=== PATIENT | male | born 1985 | race Caucasian/White ===

== ENCOUNTER 2020-03-26 21:11 | Observation (INO) | payer OTHER, SELFPAY ==
[2020-03-26] VITALS (7 sets, daily range): BP systolic 137–145; BP diastolic 88–95; PULSE 87–94; RESP 16–19; TEMP 36.9; O2SAT 96–99; BMI 21.2
--- NOTE | 2020-03-26 21:39 | CT_ITS ---
PROCEDURE: CT ABDOMEN PELVIS W CON CLINICAL INDICATION: abdominal pain For quadrant and right lower quadrant abdominal pain COMPARISON: No exams were available for comparison TECHNIQUE: IV Contrast: 75ML OPTIRAY 350 Oral Contrast None Axial images obtained with sagittal and coronal reformats. All CT scans at the facility use one or more dose reduction, viz: automated exposure control, ma/kV adjustment per patient size (including targeted exams where dose is matched to indication, i.e. head), or iterative reconstruction technique. FINDINGS: LOWER THORAX: Minimal atelectatic or fibrotic changes noted in the left lung base ABDOMEN & PELVIS: Hepatic steatosis. No focal liver lesion apparent. There is increased density along the posterior aspect of the gallbladder and could be due to a small stone or tumefactive sludge. Gallbladder ultrasound may provide further evaluation. The spleen, adrenal glands, pancreas, and kidneys have an unremarkable appearance. No intestinal obstruction or free air. Unremarkable appearing appendix. No pelvic mass or abnormal fluid collection. There is fatty atrophy of the rectus abdominal musculature right greater than left. No acute bony findings. IMPRESSION: 1. No acute finding. 2. Hepatic steatosis. 3. Fatty atrophy of the rectus abdominal musculature right greater than left Dictated by: Arian Munoz MD 03/27/2020 08:54 Arian Munoz MD in [place] 03/27/2020 08:54
[2020-03-26 21:49] LABS: Microscopic, Urine URINE MICROSCOPIC (MICROSCOPIC)
[2020-03-26 21:52] LABS: Basophils # 0.1 K/mm3 (0-0.2); Basophils % 1.2 % (0.1-2.0); Eosinophils # 0.2 K/mm3 (0.0-0.4); Eosinophils % 5.7 % (0.1-12.0); Hematocrit 45.9 % (42.0-52.0); Hemoglobin 15.6 g/dL (14.1-18.0); Lymphocytes # 1.3 K/mm3 (0.7-4.5); Lymphocytes % 32.8 % (10-50); Mean Corpuscular HGB Conc 34.1 g/dL (31.8-35.4); Mean Corpuscular Hemoglobin 32.3 pg (27.0-31.2); Mean Corpuscular Volume 94.9 fl (80-94); Mean Platelet Volume 8.7 fl (7.4-10.4); Monocytes # 0.4 K/mm3 (0.1-1.0); Monocytes % 9.3 % (1.7-9.3); Neutrophils % 51.1 % (37.0-80.0); Platelet Count 180 K/mm3 (142-424); Red Blood Count 4.83 M/mm3 (4.60-6.20); White Blood Count 3.9 K/mm3 (4.8-10.8)
[2020-03-26 21:54] LABS: Appearance,Urine CLEAR (Clear); Bilirubin,Urine Negative (Negative); Blood, Urine Negative (Negative); Color,Urine YELLOW (Yellow); Glucose,Urine (UA) Negative (Negative); Ketones,Urine Negative (Negative); Leukocyte Esterase,Urine Negative (Negative); Nitrate,Urine Negative (Negative); Protein,Urine Negative (Negative); Specific Gravity, Urine >= 1.030 (1.005-1.030); Urobilinogen,Urine 0.2 EU/dl (0.2)
--- NOTE | 2020-03-26 22:05 | HMH.EDGENADL ---
ED Disposition Clinical Impression: Pancreatitis Qualifiers: Chronicity: acute Pancreatitis type: alcohol induced Acute pancreatitis complication: no infection or necrosis Qualified Code(s): K85.20 - Alcohol induced acute pancreatitis without necrosis or infection Disposition: Admitted As Inpatient Condition on Discharge: Fair - Critical Care Critical Care Time: No Attestation: On 03/26/20, the high probability of a clinically significant, sudden or life threatening deterioration of the following system(s) required my full and direct attention, intervention and personal management. The time I documented below is in addition to time spent performing reported procedures but includes the following listed in this critical care notation. Medical Decision Making - Mitchell Inquiry Pt receiving controlled substance: Yes (Patient received IV morphine for pain control) Mitchell was queried for this patient: No Risks and benefits of using a controlled substance: were discussed with pt by me Vital Signs: 03/26/20 21:27 03/26/20 21:30 03/26/20 22:00 Temperature 98.5 F Temperature Source Oral Pulse Rate Pulse Rate [Right] 87 93 H 94 H Respiratory Rate 19 17 17 Blood Pressure Blood Pressure [Right Arm] 145/95 H 141/94 H 137/90 Blood Pressure Mean [Right Arm] 111 109 105 Blood Pressure Source [Right Arm] Automatic Cuff Automatic Cuff Automatic Cuff Blood Pressure Position [Right Arm] Supine Supine Supine 02 Sat by Pulse Oximetry 99 97 99 Oxygen Delivery Method Room Air Room Air Room Air 03/26/20 22:30 03/26/20 23:00 03/26/20 23:30 Temperature Temperature Source Pulse Rate Pulse Rate [Right] 89 88 92 H Respiratory Rate 17 17 17 Blood Pressure Blood Pressure [Right Arm] 140/90 137/91 H 145/90 H Blood Pressure Mean [Right Arm] 106 106 108 Blood Pressure Source [Right Arm] Automatic Cuff Automatic Cuff Automatic Cuff Blood Pressure Position [Right Arm] Supine Supine Supine 02 Sat by Pulse Oximetry 99 96 98 Oxygen Delivery Method Room Air Room Air Room Air 03/26/20 23:47 03/27/20 00:00 Temperature 98.5 F Temperature Source Pulse Rate 88 Pulse Rate [Right] 89 Respiratory Rate 16 17 Blood Pressure 142/88 H Blood Pressure [Right Arm] 134/84 Blood Pressure Mean [Right Arm] 100 Blood Pressure Source [Right Arm] Automatic Cuff Blood Pressure Position [Right Arm] Supine 02 Sat by Pulse Oximetry 97 Oxygen Delivery Method Room Air Room Air - Lab Data Lab Results 03/26/20 21:25: WBC 3.9 L, RBC 4.83, Hgb 15.6, Hct 45.9, MCV 94.9 H, MCH 32.3 H, MCHC 34.1, RDW 14.0, Plt Count 180, MPV 8.7, Neut % (Auto) 51.1, Lymph % (Auto) 32.8, [place] % (Auto) 9.3, Eos % (Auto) 5.7, Baso % (Auto) 1.2, Neut # (Auto) 2.0, Lymph # (Auto) 1.3, [place] # (Auto) 0.4, Eos # (Auto) 0.2, Baso # (Auto) 0.1 03/26/20 21:25: Amylase 161 H, Lipase 1979 H 03/26/20 21:25: Urine Color Yellow, Urine Appearance Clear, Urine pH 6.0, Ur Specific [place] >= 1.030, Urine Protein Negative, Urine Glucose (UA) Negative, Urine Ketones Negative, Urine Blood Negative, Urine Nitrate Negative, Urine Bilirubin Negative, Urine Urobilinogen 0.2, Ur Leukocyte Esterase Negative, Urine RBC 3-5, Urine WBC 5-10, Ur Squamous Epith Cells Occasional, Urine Bacteria Trace, Fatty Casts Occasional, Hyaline Casts Occasional 03/26/20 21:25: Sodium 144, Potassium 4.2, Chloride 108 H, Carbon Dioxide 27, Anion Gap 13.2, BUN 9, Creatinine 0.90, Estimated Creat Clear 102, Estimated GFR 95, Est GFR ( Amer) 116, Glucose 111 H, Calcium 9.3, Total Bilirubin 0.4, AST 211 H, ALT 103 H, Alkaline Phosphatase 101, Total Protein 7.6, Albumin 4.5, Globulin 3.1, Albumin/Globulin Ratio 1.5 03/26/20 21:25: SARS-CoV-2 IgG Ab (Rapid) Negative, SARS-CoV-2 IgM Ab (Rapid) Negative Result diagrams: 03/26/20 21:25 03/26/20 21:25 Orders (Tests/Meds): ED MEDICATIONS Generic Name Dose Route Start Last Admin Trade Name Freq PRN Reason Stop Dose Admin Folic Acid 1 mg 03/27/20 09:
[2020-03-26 22:06] LABS: Chloride 108 mmol/L (98-107); Potassium 4.2 mmoL/L (3.5-5.1); Sodium 144 mmol/L (136-145)
[2020-03-26 22:08] LABS: Amylase 161 U/L (30-110); Lipase 1979 U/L (23-300)
[2020-03-26 22:09] LABS: Alanine Aminotransferase 103 U/L (12-78); Albumin Level 4.5 g/dl (3.5-5.0); Albumin/Globulin Ratio 1.5 (1.1-1.8); Alkaline Phosphatase 101 U/L (38-126); Anion Gap 13.2 mEq/L (5-15); Aspartate Amino Transferase 211 U/L (17-59); Bilirubin,Total 0.4 mg/dl (0.2-1.3); Blood Urea Nitrogen 9 mg/dl (9-20); Calcium 9.3 mg/dl (8.4-10.2); Carbon Dioxide 27 mmol/L (22.0-30.0); Creatinine Clearance Estimated 102 mL/min (50-200); Estimated Glomerular Filt Rate 95 ml/min (>60); GFR (African American) 116 ML/MIN (>60); Globulin 3.1 g/dL (1.3-3.2); Glucose 111 mg/dl (74-100); Total Protein,Serum 7.6 g/dl (6.3-8.2)
[2020-03-26 22:12] LABS: Bacteria,Urine Trace /lpf; Squamous Epithelial Cell,Urine Occasional #/hpf (0-5)
[2020-03-26 22:13] LABS: Fatty Casts,Urine Occasional #/lpf (0); Hyaline Casts,Urine Occasional #/lpf (0)
--- NOTE | 2020-03-26 22:40 | PC.NURSE ---
speaking with Dr Gibbs for admission
[2020-03-26 23:21] LABS: Coronavirus 19 IgG Antibody Negative (Negative); Coronavirus 19 IgM Antibody Negative (Negative)
[2020-03-27] VITALS: BP 134/84; PULSE 89; RESP 17; O2SAT 97; BMI 22.4
--- NOTE | 2020-03-27 00:11 | PC.NURSE ---
patient up to floor via wheelchair per staff.
--- NOTE | 2020-03-27 03:38 | PC.NURSE ---
A&OX4. PT TOLERATING RA WELL T/O SHIFT. PT C/O PAIN OF 8 ON 1-10 SCALE IN R ABD. VERY TENDER TO TOUCH. TX WITH MORPHINE PER SEP. ON REASSESSMENT, PT RESTING IN BED WITH NO MORE REPORTS OF PAIN. PT TOLERATING NPO DIET WELL. CIWA EVALUATION Q4H. SEIZURE PADS IN PLACE. NO S/S OF WITHDRAW THUS FAR. PT HAS HAD NO OTHER C/O THUS FAR. VSS WILL CONTINUE TO MONITOR.
[2020-03-27 04:04] VITALS: BP 129/92; RESP 16; TEMP 36.5; O2SAT 96
--- NOTE | 2020-03-27 04:05 | PC.NURSE ---
Primary RN made aware of elevated BP.
[2020-03-27 05:50] VITALS: BMI 22.6
[2020-03-27 06:39] LABS: Basophils % 0.8 % (0.1-2.0); Eosinophils # 0.1 K/mm3 (0.0-0.4); Eosinophils % 2.5 % (0.1-12.0); Hematocrit 42.1 % (42.0-52.0); Hemoglobin 14.3 g/dL (14.1-18.0); Lymphocytes # 0.8 K/mm3 (0.7-4.5); Lymphocytes % 23.7 % (10-50); Mean Corpuscular HGB Conc 34.1 g/dL (31.8-35.4); Mean Corpuscular Hemoglobin 32.9 pg (27.0-31.2); Mean Corpuscular Volume 96.4 fl (80-94); Mean Platelet Volume 8.2 fl (7.4-10.4); Monocytes # 0.2 K/mm3 (0.1-1.0); Monocytes % 7.4 % (1.7-9.3); Neutrophils # 2.1 K/mm3 (1.8-7.8); Neutrophils % 65.6 % (37.0-80.0); Platelet Count 128 K/mm3 (142-424); Red Blood Count 4.36 M/mm3 (4.60-6.20); White Blood Count 3.3 K/mm3 (4.8-10.8)
[2020-03-27 06:41] LABS: Chloride 107 mmol/L (98-107); Sodium 142 mmol/L (136-145)
[2020-03-27 06:43] LABS: Amylase 130 U/L (30-110)
[2020-03-27 06:44] LABS: Alanine Aminotransferase 82 U/L (12-78); Albumin Level 3.7 g/dl (3.5-5.0); Albumin/Globulin Ratio 1.4 (1.1-1.8); Alkaline Phosphatase 88 U/L (38-126); Aspartate Amino Transferase 135 U/L (17-59); Bilirubin,Total 0.7 mg/dl (0.2-1.3); Blood Urea Nitrogen 9 mg/dl (9-20); Calcium 8.6 mg/dl (8.4-10.2); Carbon Dioxide 29 mmol/L (22.0-30.0); Creatinine Clearance Estimated 122 mL/min (50-200); Estimated Glomerular Filt Rate 109 ml/min (>60); GFR (African American) 132 ML/MIN (>60); Globulin 2.7 g/dL (1.3-3.2); Glucose 87 mg/dl (74-100); Phosphorous 4.4 mg/dl (2.5-4.5); Total Protein,Serum 6.4 g/dl (6.3-8.2)
[2020-03-27 06:45] LABS: Magnesium 1.2 mg/dl (1.6-2.3)
[2020-03-27 07:44] LABS: Lipase 882 U/L (23-300)
[2020-03-27 07:57] VITALS: BP 144/85; PULSE 61; RESP 17; TEMP 36.6; O2SAT 96
--- NOTE | 2020-03-27 08:31 | HMH.PHAVTE ---
[facility] Pharmacy VTE Monitoring - Patient Demographics Admission date: 03/27/20 Report Date: 03/27/20 Time: 08:31 Allergies/Adverse Reactions: Patient Allergies No Known Allergies Allergy (Verified 07/19/18 21:42) Height: 1.73 m Weight: 67.585 kg Patient Problems: Current Active Problems Pancreatitis (Acute) - VTE Risk Labs: VTE Related Lab Results Hgb 14.3 g/dL (14.1-18.0) 03/27/20 05:40 Hct 42.1 % (42.0-52.0) 03/27/20 05:40 Plt Count 128 K/mm3 (142-424) L D 03/27/20 05:40 BUN 9 mg/dl (9-20) 03/27/20 05:40 Creatinine 0.80 mg/dl (0.66-1.25) 03/27/20 05:40 Estimated Creat Clear 122 mL/min (50-200) 03/27/20 05:40 Clinical Trial Participant: No - Prophylaxis VTE Prophylaxis Ordered?: Yes Types of VTE Prophylaxis: TEDS Knee High
--- NOTE | 2020-03-27 09:14 | HMH.HP ---
*Admission Date: 03/27/20 *Chief complaint: Abdominal Pain *History of present illness: Male patient presented to the emergency room for complaints of right-sided abdominal pain for the past 2 hours. He reports he was sitting at home and started having pain in his umbilical area which spread to the right side. He denies N/V/D, fever/chills/body aches, chest pain, or shortness of breath. Patient was given IV fluids and Toradol for pain, Toradol decreased pain a little and then morphine was given, patient reported then pain decreased to a tolerable level. CT of abdomen/pelvis was negative for appendicitis, but did reveal hepatic steatosis. No leukocytosis on labs, AST 211, ALT 103, amylase slightly elevated at 161, lipase very elevated at 1979. This morning he is lying in bed resting quietly respirations easy even. He reports he still has right-sided abdominal pain, it is tender to palpation, but is feeling a little better. He does report a 12 beer a day consumption for approximately 15 years. He denies any liquor, illicits and does smoke 1 pack/day for 20 years. Lengthy discussion regarding alcohol consumption and possible medical outcomes with patient, he verbalizes understanding and we will consult psychiatric social worker. He reports he does not have a primary care physician, explained to patient he will be given follow-up instructions with the PCP included. This morning labs are AST 135, ALT 82, amylase 30, lipase is reduced to 882. CBC is unremarkable as well as BMP this morning [facility] History I have reviewed the patient's past medical history: Yes Medical History: Denies:: Cancer, Diabetes Mellitus Type 1, Diabetes Mellitus Type 2, Internal Pacemaker, MRSA *Have you ever received a pneumonia vaccine?: No *Have you received a flu vaccine this season?: No Other Surgeries: No: Pacemaker Amputation: No Fractures: No - *Social History Last grade of school completed: High school graduate Smoking Status: Current every day smoker Tobacco Type: cigarettes # Packs/Day (cigarettes): 1 Alcohol Intake: current Alcohol Intake Frequency:: 3 or more drinks per day Substance Use Type: denies use *Occupational Status:: unemployed Housing: house *Travel in the last 8 weeks: None Family Hx:: No significant family history Review of Systems - Review of Systems Review of systems:: pertinent systems reviewed and negative unless documented below - Constitutional Denies excessive sweating, Denies weakness - Eyes Denies blurry vision, Denies change in vision - ENT Denies dizziness, Denies difficulty swallowing - *Cardiovascular Denies chest pain, Denies shortness of breath - *Respiratory Denies change in phlegm color, Denies chest congestion - *Gastrointestinal Reports abdominal pain, Denies vomiting - *Genitourinary Denies difficulty urinating, Denies painful urination - *Musculoskeletal Denies limited joint movement, Denies muscle cramps, Denies muscle weakness - Integumentary/Breasts Denies change in skin color, Denies non-healing lesions - *Neurologic Denies abnormal walking, Denies localized weakness, Denies loss of vision - Psychiatric Denies lack of enjoyment, Denies confusion - Endocrine Denies cold intolerance, Denies heat intolerance - Hematologic/Lymphatic Denies easy bleeding, Denies easy bruising - Allergic/Immunologic Denies GI upset with certain foods, Denies tongue swelling Meds Home Medications Medication Instructions Recorded Confirmed Type No Known Home Medications 03/26/20 03/26/20 History Allergies Allergy/AdvReac Type Severity Reaction Status Date / Time No Known Allergies Allergy Verified 07/19/18 21:42 Exam Vital signs and Labs for Last 24 Hours: Temp Pulse Resp BP Pulse Ox 97.8 F 61 17 144/85 H 96 03/27/20 07:57 03/27/20 07:57 03/27/20 07:57 03/27/20 07:57 03/27/20 07:57 Laboratory Results - last 24 hr 03/26/20 21:25: WBC 3.9 L, RBC 4.83, Hgb 15.6,
--- NOTE | 2020-03-27 10:00 | SW/DCPLANNER ---
[employer]) has notified Gracia Venegas regarding self-pay status for this patient.
--- NOTE | 2020-03-27 14:40 | SW/DCPLANNER ---
Addendum entered by Katie Cardenas 03/28/20 13:44: Patient had no further questions at this time. Original Note: I have presented a list of inpatient/outpatient resources for this patient regarding assistance with alcohol abuse. This list consisted of: AA in [place] (time/place/day), [facility] (outpatient), [facility] (outpatient), [facility] (In patient) and [facility] (In patient). Patient stated that he would like to review this list and follow up tomorrow morning.
[2020-03-27 16:00] VITALS: BP 148/94; PULSE 58; RESP 17; TEMP 36.6; O2SAT 98
--- NOTE | 2020-03-27 19:23 | PC.NURSE ---
report given to lillian
[2020-03-27 19:46] VITALS: BP 138/88; PULSE 60; RESP 16; TEMP 36.6; O2SAT 100
--- NOTE | 2020-03-27 20:19 | PC.NURSE ---
PATIENT A&OX4, LUNGS CLEAR, PULSES EQUAL. PATIENT HAD SLIGHT TREMORS THRU THIS RN SHIFT. MINIMAL PAIN. PATIENT COMPLAINED OF DRY MOUTH, THIS RN PROVIDED PATIENT WITH DENTAL SPONGES. PATIENT AMBULATES TO RESTROOM, STEADY GAIT. THIS RN ENCOURAGED PATIENT TO AMBULATE AROUND ROOM OR IN HALLWAY, PATIENT STATED, OKAY NO OTHER CONCERNS AT THIS TIME.
[2020-03-28 04:00] VITALS: BP 146/96; PULSE 68; RESP 16; TEMP 36.7; O2SAT 97
--- NOTE | 2020-03-28 04:14 | PC.NURSE ---
A&OX3. ASSISTANT PRINCIPAL EQUAL BILAT. PULSES +2. LUNGS NOTED CLEAR T/O AUSCULTATION. TOLERATED RA WELL. ABDOMEN NONDISTENDED, HYPERACTIVE BOWEL SOUNDS IN ALL QUADS, SOFT AND TENDER PER PALPATION IN RUQ AND RLQ OF ABDOMEN. CIWA SCORE OF 1, WILL CONTINUE TO ASSESS CIWA SCORE ACCORDING TO SCALE. INDEPENDENT WITH ADLS. VSS. WILL CONTINUE TO MONITOR.
[2020-03-28 06:00] VITALS: BMI 21.5
[2020-03-28 06:15] LABS: Eosinophils # 0.2 K/mm3 (0.0-0.4); Eosinophils % 6.8 % (0.1-12.0); Hematocrit 41.9 % (42.0-52.0); Lymphocytes # 0.6 K/mm3 (0.7-4.5); Lymphocytes % 20.6 % (10-50); Mean Corpuscular HGB Conc 33.5 g/dL (31.8-35.4); Mean Corpuscular Hemoglobin 32.5 pg (27.0-31.2); Mean Platelet Volume 9.4 fl (7.4-10.4); Monocytes # 0.2 K/mm3 (0.1-1.0); Monocytes % 7.4 % (1.7-9.3); Neutrophils % 64.2 % (37.0-80.0); Platelet Count 107 K/mm3 (142-424); Red Blood Count 4.31 M/mm3 (4.60-6.20); Red Cell Distribution Width 13.6 % (11.5-17.5); White Blood Count 3.1 K/mm3 (4.8-10.8)
[2020-03-28 06:27] LABS: Chloride 103 mmol/L (98-107); Sodium 139 mmol/L (136-145)
[2020-03-28 06:28] LABS: Potassium 4.5 mmoL/L (3.5-5.1)
[2020-03-28 06:30] LABS: Blood Urea Nitrogen 15 mg/dl (9-20); Creatinine Clearance Estimated 103 mL/min (50-200); Estimated Glomerular Filt Rate 95 ml/min (>60); GFR (African American) 116 ML/MIN (>60)
[2020-03-28 06:31] LABS: Anion Gap 10.5 mEq/L (5-15); Calcium 8.8 mg/dl (8.4-10.2); Carbon Dioxide 30 mmol/L (22.0-30.0); Glucose 72 mg/dl (74-100)
[2020-03-28 08:00] VITALS: BP 149/86; PULSE 65; RESP 19; TEMP 36.6; O2SAT 97
[2020-03-28 08:40] LABS: Amylase 73 U/L (30-110); Lipase 372 U/L (23-300)
--- NOTE | 2020-03-28 13:13 | HMH.DCSUM ---
General - General Admission date:: 03/27/20 HPI HPI: Male patient presented to the emergency room for complaints of right-sided abdominal pain for the past 2 hours. He reports he was sitting at home and started having pain in his umbilical area which spread to the right side. He denies N/V/D, fever/chills/body aches, chest pain, or shortness of breath. Patient was given IV fluids and Toradol for pain, Toradol decreased pain a little and then morphine was given, patient reported then pain decreased to a tolerable level. CT of abdomen/pelvis was negative for appendicitis, but did reveal hepatic steatosis. No leukocytosis on labs, AST 211, ALT 103, amylase slightly elevated at 161, lipase very elevated at 1979. This morning he is lying in bed resting quietly respirations easy even. He reports he still has right-sided abdominal pain, it is tender to palpation, but is feeling a little better. He does report a 12 beer a day consumption for approximately 15 years. He denies any liquor, illicits and does smoke 1 pack/day for 20 years. Lengthy discussion regarding alcohol consumption and possible medical outcomes with patient, he verbalizes understanding and we will consult health social work professor. He reports he does not have a primary care physician, explained to patient he will be given follow-up instructions with the PCP included. This morning labs are AST 135, ALT 82, amylase 30, lipase is reduced to 882. CBC is unremarkable as well as BMP this morning Hospital Course Hospital Course: lipase trended downward sequentially this correlated to diminution of abdominal symptoms given diet on day of discharge and tolerated well advised to curtail etoh intake also advised to establish with a primary care provider Objective Vital signs: Temp Pulse Resp BP Pulse Ox 97.8 F 65 19 149/86 H 97 03/28/20 08:00 03/28/20 08:00 03/28/20 08:00 03/28/20 08:00 03/28/20 08:00 no acute distress - *Routine HEENT Exam Head: Present: normocephalic Eye: Present: EOMI, PERRL ENT: Present: mucous membranes moist - *Routine Neck Exam Present: supple - *Routine Respiratory Exam Present: CTA bilaterally - *Routine Cardiovascular Exam Present: RRR - *Routine Abdominal Exam Present: soft, normoactive bowel sounds, tenderness Comments: justin tenderness to deep palpation, much improved from presentation - *Routine Extremities Exam Absent: cyanosis, clubbing, edema - *Routine Skin Exam Present: warm. Absent: rash - *Routine Neurological Exam Present: alert, oriented X3, moving all extremities, vision grossly intact, hearing grossly intact, normal speech. Absent: altered mental status, facial asymmetry - Routine Psychiatric Exam Present: normal affect, cooperative, good insight Results Labs on day of discharge: Labs from last 24 hours 03/28/20 03/28/20 03/28/20 06:05 06:05 06:05 WBC 3.1 L RBC 4.31 L Hgb 14.0 L Hct 41.9 L MCV 97.0 H MCH 32.5 H MCHC 33.5 RDW 13.6 Plt Count 107 L MPV 9.4 Neut % (Auto) 64.2 Lymph % (Auto) 20.6 [place] % (Auto) 7.4 Eos % (Auto) 6.8 Baso % (Auto) 1.0 Neut # (Auto) 2.0 Lymph # (Auto) 0.6 L [place] # (Auto) 0.2 Eos # (Auto) 0.2 Baso # (Auto) 0.0 Sodium 139 Potassium 4.5 Chloride 103 Carbon Dioxide 30 Anion Gap 10.5 BUN 15 D Creatinine 0.90 Estimated Creat Clear 103 Estimated GFR 95 Est GFR ( Amer) 116 Glucose 72 L Calcium 8.8 Amylase 73 Lipase 372 H DS: Diagnosis - Discharge Diagnosis (1) Pancreatitis Status: Acute (2) Alcohol abuse Status: Chronic (3) Tobacco abuse Status: Chronic Discharge Plan - Patient Discharge Instructions ACTIVITY: Continue current activity DIET: advance to your usual diet Patient Instructions: DI for Pancreatitis, DI for Alcohol Abuse - Follow up Plan Follow up with: Gurpreet Patel APRN [Nurse
--- NOTE | 2020-03-28 14:37 | HMH.PHAINT ---
DISCHARGE COUNSELING COMPLETED.
[2020-03-29 07:26] LABS: Hep A Ab, IgM Negative (Negative); Hepatitis B Core Antibody IgM Negative (Negative); Hepatitis B Surface Antigen Negative (Negative)
[2020-03-29 09:09] LABS: Hepatitis C Antibody <0.1 s/co ratio (0.0-0.9)
== END 2020-03-28 15:23 | disposition home or self-care (01) ==
LOC: ER 23:23 → 2ND 23:54
PROVIDERS: Nurse Practitioner Family; Admitting Provider Family Medicine; Emergency Provider Emergency Medicine; Visit Provider Family Medicine
DX: K85.20 Alcohol induced acute pancreatitis without necrosis or infection (principal); F10.10 Alcohol abuse, uncomplicated; Z72.0 Tobacco use
CPT/HCPCS: 36415; 74177; 80048; 80053; 80074; 81001; 82150; 83690; 83735; 84100; 85025; 86328; 96365; 96375; 99284; G0378; J2405; Q9967

== ENCOUNTER 2021-02-27 20:33 | Emergency (ER) | payer OTHER, SELFPAY ==
[2021-02-27 20:35] VITALS: BP 143/101; PULSE 72; RESP 20; TEMP 36.6; O2SAT 100; BMI 22.7
[2021-02-27 20:52] LABS: Apearance,Urine Clear (Clear); Color,Urine Dark Yellow (Yellow); PH,Urine 5.5 (5.0-8.5); Specific Gravity, Urine >= 1.030 (1.005-1.030)
[2021-02-27 20:53] LABS: Bilirubin,Urine 1+ (Negative); Blood, Urine Negative (Negative); Glucose,Urine (UA) Negative (Negative); Ketones,Urine Negative (Negative); Protein,Urine 1+ (Negative); UTC Leukocyte Esterase,Urine Negative (Negative); UTC Nitrate,Urine Negative (Negative); Urobilinogen,Urine 0.2 EU/dl (0.2)
--- NOTE | 2021-02-27 20:53 | HMH.EDUTC ---
[facility] [place] Disposition Clinical Impression: Abdominal pain Qualifiers: Abdominal location: generalized Qualified Code(s): R10.84 - Generalized abdominal pain Disposition: Still a Patient Condition on Discharge: Good Referrals: Provider,Referral, [Primary Care Provider] - Time of Disposition: 21:13 Medical Decision Making - Medical Records Medical records reviewed: No: I reviewed the patient's medical records. - Mitchell Inquiry Pt receiving controlled substance: No Vital Signs: 02/27/21 20:35 Temperature 97.8 F Temperature Source Oral Pulse Rate [Left Brachial] 72 Respiratory Rate 20 Blood Pressure [Left Arm] 143/101 H Blood Pressure Mean [Left Arm] 115 Blood Pressure Source [Left Arm] Automatic Cuff Blood Pressure Position [Left Arm] Sitting 02 Sat by Pulse Oximetry 100 Oxygen Delivery Method Room Air - Lab Data Lab results reviewed: Yes: I reviewed the patient's lab results. Lab Results 02/27/21 20:51: Urine Color Dark yellow, Urine Appearance Clear, Urine pH 5.5, Ur Specific [place] >= 1.030, Urine Protein 1+, Urine Glucose (UA) Negative, Urine Ketones Negative, Urine Blood Negative, Urine Nitrate Negative, Urine Bilirubin 1+ A, Urine Urobilinogen 0.2, Ur Leukocyte Esterase Negative Orders (Tests/Meds): ORDERS Category Date Time Status Amylase Stat Lab 02/27/21 21:02 Ordered Complete Blood Count Auto Diff Stat Lab 02/27/21 21:02 Ordered Comprehensive Metabolic Panel Stat Lab 02/27/21 21:02 Ordered Lipase Stat Lab 02/27/21 21:02 Ordered Medical Decision Narrative: He was transferred to the ER due to his abdominal pain and his history of pancreatitis. [facility] [place] [facility] HPI - General Stated complaint: Abd pain,vomiting Time Seen by Provider: 02/27/21 20:53 Mode of Arrival: Ambulatory Source of Information: Patient Limitations: No Limitations Description of Symptoms (Recalled from Triage Doc. by RN): PATIENT C/O MIDDLE ABDOMINAL PAIN WITH EMESIS X 2 THAT STARTED AROUND 1700 AFTER HE ATE A SANDWICH. HE REPORTS HIS GIRLFRIEND ATE THE SAME THING, HOWEVER SHE IS NOT SICK. PAIN IS CRAMPING AND HE RATES IT 6/10 AT THIS TIME. HEENT Symptoms (Recalled from RN notes): No Resp Symptoms (Recalled from RN notes): No Skin Symptoms (Recalled from RN notes): No MS Symptoms (Recalled from RN notes): No Functional Status (Recalled from RN notes): WNL - History of Present Illness Provider Complaint: He states that right after 1700 today he started having upper abdominal pain. The pain is located from just below his xiphoid process down to around his navel. He states that the pain makes it hard for him to stand up straight or lie down flat. He denies any chilling. He denies constipation or diarrhea. He has not vomited, but he has felt nauseated some. - Related Data Home Medications Medication Instructions Recorded Confirmed No Known Home Medications 02/27/21 02/27/21 Allergies Allergy/AdvReac Type Severity Reaction Status Date / Time No Known Allergies Allergy Verified 04/03/20 11:27 - Worker's Comp Is this a Worker's Comp case?: No [facility] History - Hepatitis A Screen Drug use history?: No High risk sexual behaviors?: No History of sexually transmitted infection?: No Currently employed?: No Childcare worker?: No Do you have indoor plumbing?: Yes Do you have electricity?: Yes Attestation statement:: This patient has been screened for Hepatitis A risk factors. I have reviewed the patient's past medical history: Yes Medical History: Denies:: Cancer, Diabetes Mellitus Type 1, Diabetes Mellitus Type 2, Internal Pacemaker, MRSA Other Surgeries: No: Pacemaker Amputation: No Fractures: No - Social History Smoking Status: Current every day smoker Tobacco Type: cigarettes # Packs/Day (cigarettes): 1 Alcohol Intake: current Alcohol Intake Frequency:: 3 or more drinks per day Substance Use Type: denies use Occupational Status: unemployed Housing: house Family Hx:: No significant fami
--- NOTE | 2021-02-27 21:13 | PC.NURSE ---
PATIENT SENT TO ER PER Veronica ROBLEDO APRN FOR FURTHER EVALUATION. REPORT GIVEN TO Veronica AIKEN RN
[2021-02-27 21:25] VITALS: BP 137/94; PULSE 84; RESP 15; TEMP 37.2; O2SAT 100; BMI 22.7
[2021-02-27 21:33] LABS: Chloride 101 mmol/L (98-107)
[2021-02-27 21:34] LABS: Potassium 4.3 mmoL/L (3.5-5.1); Sodium 140 mmol/L (136-145)
[2021-02-27 21:35] LABS: Basophils % 0.6 % (0.1-2.0); Eosinophils # 0.1 K/mm3 (0.0-0.4); Eosinophils % 0.9 % (0.1-12.0); Hematocrit 45.5 % (42.0-52.0); Hemoglobin 15.5 g/dL (14.1-18.0); Lymphocytes # 0.6 K/mm3 (0.7-4.5); Lymphocytes % 10.4 % (10-50); Mean Corpuscular Volume 91.2 fl (80-94); Mean Platelet Volume 8.8 fl (7.4-10.4); Monocytes # 0.3 K/mm3 (0.1-1.0); Monocytes % 5.4 % (1.7-9.3); Neutrophils # 4.5 K/mm3 (1.8-7.8); Neutrophils % 82.6 % (37.0-80.0); Platelet Count 195 K/mm3 (142-424); Red Blood Count 4.99 M/mm3 (4.60-6.20); Red Cell Distribution Width 13.6 % (11.5-17.5); White Blood Count 5.5 K/mm3 (4.8-10.8)
[2021-02-27 21:36] LABS: Alanine Aminotransferase 84 U/L (12-78); Alkaline Phosphatase 115 U/L (38-126); Amylase 58 U/L (30-110); Aspartate Amino Transferase 183 U/L (17-59); Bilirubin,Total 0.9 mg/dl (0.2-1.3); Blood Urea Nitrogen 9 mg/dl (9-20); Creatinine Clearance Estimated 105 mL/min (50-200); Estimated Glomerular Filt Rate 95 ml/min (>60); GFR (African American) 115 ML/MIN (>60)
[2021-02-27 21:37] LABS: Albumin/Globulin Ratio 1.6 (1.1-1.8); Anion Gap 14.3 mEq/L (5-15); Calcium 9.7 mg/dl (8.4-10.2); Carbon Dioxide 29 mmol/L (22.0-30.0); Globulin 3.2 g/dL (1.3-3.2); Glucose 138 mg/dl (74-100); Lipase 88 U/L (23-300); Total Protein,Serum 8.2 g/dl (6.3-8.2)
--- NOTE | 2021-02-27 21:52 | HMH.EDGENADL ---
ED Disposition Clinical Impression: Epigastric pain Disposition: Home, Self-Care Condition on Discharge: Good Instructions: DI for Acute Abdominal Pain Additional Instructions: Additional instructions for ABDOMINAL PAIN: See your physician as soon as possible for further evaluation. Return immediately if worsening abdominal pain, vomiting, shortness of breath, fever, vomiting of blood or abdominal distention. Referrals: Provider,Referral, [Primary Care Provider] - - Critical Care Critical Care Time: No Attestation: On 02/27/21, the high probability of a clinically significant, sudden or life threatening deterioration of the following system(s) required my full and direct attention, intervention and personal management. The time I documented below is in addition to time spent performing reported procedures but includes the following listed in this critical care notation. Medical Decision Making - Mitchell Inquiry Pt receiving controlled substance: No Vital Signs: 02/27/21 20:35 02/27/21 21:25 Temperature 97.8 F 98.9 F Temperature Source Oral Oral Pulse Rate [Left Brachial] 72 84 Respiratory Rate 20 15 Blood Pressure [Left Arm] 143/101 H 137/94 H Blood Pressure Mean [Left Arm] 115 108 Blood Pressure Source [Left Arm] Automatic Cuff Automatic Cuff Blood Pressure Position [Left Arm] Sitting 02 Sat by Pulse Oximetry 100 100 Oxygen Delivery Method Room Air Room Air - Lab Data Lab Results 02/27/21 20:51: Urine Color Dark yellow, Urine Appearance Clear, Urine pH 5.5, Ur Specific [place] >= 1.030, Urine Protein 1+, Urine Glucose (UA) Negative, Urine Ketones Negative, Urine Blood Negative, Urine Nitrate Negative, Urine Bilirubin 1+ A, Urine Urobilinogen 0.2, Ur Leukocyte Esterase Negative 02/27/21 21:00: WBC 5.5, RBC 4.99, Hgb 15.5, Hct 45.5, MCV 91.2, MCH 31.0, MCHC 34.0, RDW 13.6, Plt Count 195, MPV 8.8, Neut % (Auto) 82.6 H, Lymph % (Auto) 10.4, [place] % (Auto) 5.4, Eos % (Auto) 0.9, Baso % (Auto) 0.6, Neut # (Auto) 4.5, Lymph # (Auto) 0.6 L, [place] # (Auto) 0.3, Eos # (Auto) 0.1, Baso # (Auto) 0.0 02/27/21 21:00: Sodium 140, Potassium 4.3, Chloride 101, Carbon Dioxide 29, Anion Gap 14.3, BUN 9, Creatinine 0.90, Estimated Creat Clear 105, Estimated GFR 95, Est GFR ( Amer) 115, Glucose 138 H, Calcium 9.7, Total Bilirubin 0.9, AST 183 H, ALT 84 H, Alkaline Phosphatase 115, Total Protein 8.2 D, Albumin 5.0, Globulin 3.2, Albumin/Globulin Ratio 1.6, Amylase 58, Lipase 88 02/27/21 21:00: Plasma/Serum Alcohol < 10 Result diagrams: 02/27/21 21:00 02/27/21 21:00 - Reevaluation(s) Time: 22:24 Reevaluation #1: Still asymptomatic. Medical Decision Narrative: Epigastric pain which is now resolved with unremarkable laboratory findings. Possibly alcoholic gastritis. General Adult HPI - General Stated complaint: Abd pain,vomiting Time Seen by Provider: 02/27/21 21:52 Mode of Arrival: Ambulatory Source of Information: Patient Limitations: No Limitations Description of Symptoms (Recalled from ER Triage Doc. by RN): PATIENT C/O MIDDLE ABDOMINAL PAIN WITH EMESIS X 2 THAT STARTED AROUND 1700 AFTER HE ATE A SANDWICH. HE REPORTS HIS GIRLFRIEND ATE THE SAME THING, HOWEVER SHE IS NOT SICK. PAIN IS CRAMPING AND HE RATES IT 6/10 AT THIS TIME. - History of Present Illness HPI narrative: Sent from the urgent treatment center. States he developed epigastric pain with vomiting at 5 PM. He states his pain is now resolved. States that he ate a sandwich prior to the pain starting. Also admits to drinking alcohol on a daily basis. Drinks 6 beers today, his last beer around 5 PM. Has a prior history of pancreatitis from alcohol. He says this pain was different, his pancreatitis pain was more right upper quadrant. He has some chronic diarrhea which he attributes to his drinking. No recent change. No fever. - Related Data Home Medications Medication Instructions Recorded Confirmed No Known Home Medicatio
[2021-02-27 21:56] LABS: Ethyl Alcohol < 10 mg/dl (0-10)
[2021-02-27 22:00] VITALS: BP 137/94; PULSE 82; O2SAT 98
[2021-02-27 22:30] VITALS: BP 121/90; PULSE 80; O2SAT 98
[2021-02-27 22:59] VITALS: BP 124/82; PULSE 90; RESP 16; TEMP 36.9; O2SAT 100
== END 2021-02-27 23:01 | disposition home or self-care (01) ==
LOC: UTC 21:03 → ER 21:14
PROVIDERS: Nurse Practitioner Family; Emergency Provider Emergency Medicine
DX: R10.13 Epigastric pain (principal); R11.2 Nausea with vomiting, unspecified; K86.0 Alcohol-induced chronic pancreatitis; F17.210 Nicotine dependence, cigarettes, uncomplicated
CPT/HCPCS: 80053; 81003; 82150; 83690; 85025; 99283

== ENCOUNTER 2021-09-19 19:54 | Emergency (ER) | payer OTHER, SELFPAY ==
--- NOTE | 2021-09-19 20:07 | XR_ITS ---
PROCEDURE INFORMATION: Exam: XR Left Wrist Exam date and time: 09/19/2021 8:07 PM Age: 36 years old Clinical indication: Pain; Wrist; Left; Additional info: Pain no trauma TECHNIQUE: Imaging protocol: XR Left wrist. Views: 3 or more views. COMPARISON: No relevant prior studies available. FINDINGS: Bones/joints: There is no evidence of acute fracture. There is no evidence of joint malalignment or dislocation. Small calcifications noted distal to the ulna may represent area of old avulsion fracture or secondary center of ossification. Soft tissues: No focal soft tissue swelling. IMPRESSION: 1. No evidence of acute fracture. 2. No evidence of acute dislocation.
--- NOTE | 2021-09-19 20:07 | XR_ITS ---
PROCEDURE INFORMATION: Exam: XR Left Hand Exam date and time: 09/19/2021 8:07 PM Age: 36 years old Clinical indication: Pain; Hand; Left; Additional info: Pain no trauma TECHNIQUE: Imaging protocol: XR Left hand. Views: 3 or more views. COMPARISON: CR XR WRIST LT MIN 3V 09/19/2021 8:04 PM FINDINGS: Bones/joints: There is no evidence of acute fracture. There is no evidence of joint malalignment or dislocation. Soft tissues: No focal soft tissue swelling. IMPRESSION: 1. No evidence of acute fracture. 2. No evidence of acute dislocation.
[2021-09-19 22:05] VITALS: BP 131/79; PULSE 83; RESP 19; TEMP 36.6; O2SAT 97; BMI 22.0
--- NOTE | 2021-09-19 22:58 | HMH.EDUTC ---
[facility] [place] Clinical Impression: Radial nerve palsy Radial nerve compression Qualifiers: Laterality: left Qualified Code(s): G56.32 - Lesion of radial nerve, left upper limb Disposition: Home, Self-Care Condition on Discharge: Good Instructions: Radial Tunnel Syndrome Additional Instructions: Rest the extremity. Use the wrist splint to help control your wrist and maintain some use of it. Take ibuprofen for pain. I sent in a prescription to your pharmacy. Follow up with Dr. Allen (orthopedics). I put in a referral but you need to call his office and schedule an appointment. This condition gets better, but it's alway good to have an orthopedic doctor look over things like this. Follow up with your regular doctor. GO TO THE ER FOR ANY WORSENING SYMPTOMS Prescriptions: Ibuprofen [Ibuprofen 600mg Tablet] 600 mg PO Q6HP PRN #30 tab PRN Reason: Mild Pain Transmission Status: [id number] methylPREDNISolone [Medrol] 4 mg PO DIRECTED 6 Days #21 packet Transmission Status: Received by [facility] Referrals: ProviderLolly MD [Primary Care Provider] - Geo Allen MD [Staff Physician] - Time of Disposition: 23:11 Medical Decision Making - Medical Records Medical records reviewed: No: I reviewed the patient's medical records. - Mitchell Inquiry Pt receiving controlled substance: No Vital Signs: 09/19/21 22:05 09/19/21 23:03 Temperature 97.8 F 97.8 F Temperature Source Oral Pulse Rate 83 Pulse Rate [Left] 83 Respiratory Rate 19 19 Blood Pressure 131/79 Blood Pressure [Right Arm] 131/79 Blood Pressure Mean [Right Arm] 96 02 Sat by Pulse Oximetry 97 - Radiology Data #1 Image(s): Wrist Image Reviewed: Yes I reviewed the patient's radiology image, Yes I have reviewed radiologist's interpretation Preliminary Findings: Abnormal [facility] [place] - General Stated complaint: pain l wrist Time Seen by Provider: 09/19/21 22:58 Mode of Arrival: Ambulatory Source of Information: Patient Limitations: No Limitations Description of Symptoms (Recalled from Triage Doc. by RN): pt states he is having a lack of mobility in L hand. pt denies any injury or pain. pt states this has been ongoing x1 wk HEENT Symptoms (Recalled from RN notes): No Resp Symptoms (Recalled from RN notes): No Skin Symptoms (Recalled from RN notes): No MS Symptoms (Recalled from RN notes): Yes Functional Status (Recalled from RN notes): wnl - History of Present Illness Provider Complaint: He is having stiffness of his left hand and tenderness at the base of his thumb. He denies any injury. - Related Data Previous Rx's Medication Instructions Recorded Ibuprofen [Ibuprofen 600mg 600 mg PO Q6HP PRN #30 tab 09/19/21 Tablet] methylPREDNISolone [Medrol] 4 mg PO DIRECTED 6 Days #21 09/19/21 packet Allergies Allergy/AdvReac Type Severity Reaction Status Date / Time No Known Allergies Allergy Verified 04/03/20 11:27 - Worker's Comp Is this a Worker's Comp case?: No [facility] History - Hepatitis A Screen Drug use history?: No High risk sexual behaviors?: No History of sexually transmitted infection?: No Currently employed?: No Childcare worker?: No Do you have indoor plumbing?: Yes Do you have electricity?: Yes Attestation statement:: This patient has been screened for Hepatitis A risk factors. I have reviewed the patient's past medical history: Yes Medical History: Denies:: Cancer, Diabetes Mellitus Type 1, Diabetes Mellitus Type 2, Internal Pacemaker, MRSA Other Surgeries: No: Pacemaker Amputation: No Fractures: No - Social History Smoking Status: Current every day smoker Tobacco Type: cigarettes # Packs/Day (cigarettes): 1 Alcohol Intake: current Alcohol Intake Frequency:: 3 or more drinks per day Substance Use Type: denies use Occupational Status: unemployed Housing: house Family Hx:: No significant family history ROS Obtained:
[2021-09-19 23:03] VITALS: BP 131/79; PULSE 83; RESP 19; TEMP 36.6
== END 2021-09-19 23:16 | disposition home or self-care (01) ==
PROVIDERS: Emergency Provider Nurse Practitioner Family
DX: G56.32 Lesion of radial nerve, left upper limb (principal); F17.210 Nicotine dependence, cigarettes, uncomplicated
CPT/HCPCS: 73110; 73130; 99202; G0463

== ENCOUNTER 2023-03-09 20:50 | Emergency (ER) | payer OTHER, SELFPAY ==
[2023-03-09 20:59] VITALS: BP 149/110; PULSE 104; RESP 19; TEMP 37.1; O2SAT 99; BMI 25.0
[2023-03-09 21:30] VITALS: BP 128/84; PULSE 85; RESP 12; O2SAT 95
[2023-03-09 22:00] VITALS: BP 122/79; PULSE 86; RESP 14; O2SAT 97
--- NOTE | 2023-03-09 22:58 | HMH.EDGENADL ---
Discharge Plan Disposition Patient Disposition: Home, Self-Care Condition: Good Prescriptions Prescriptions: No Action ibuprofen 600 MG tablet 600 mg PO Q6HP PRN (Reason: Mild Pain) Qty: 30 0RF methylprednisolone 4 MG tablets,dose pack 4 mg PO DIRECTED 6 Days Qty: 21 0RF Referrals Follow up/Referrals: Provider,Referral, MD [Primary Care Provider] - See instructions Activity Restrictions/Add. Instructions Additional Instructions/Restrictions: Call your family doctor to establish care for this visit to the emergency department and schedule follow-up within 48 hours to ensure improvement. If you have any worsening of your condition or any other concerning signs or symptoms, return to the emergency department or your primary care doctor for further evaluation. Benadryl every 6 hours or Claritin/Zyrtec every 24 hours for symptoms. Clinical Impressions Clinical Impression: Bee sting Discharge ED Provider: Kendall Maria General Adult HPI General Chief complaint: Allergic Reaction Stated complaint: Stung by wasps while mowing Time Seen by Provider: 03/09/23 22:47 Mode of Arrival: Family Vehicle Source of Information: Patient Limitations: No Limitations Description of Symptoms (Recalled from ER Triage Doc. by RN): 37 yo male presents with chief complaint of multiple 'wasp' stings while mowing the yard. Patient denies n/v/d, dyspnea, denies headache. No previous history of anaphylaxis. Patient denies issues at time of triage. 6-7 areas of redness from stings. History of Present Illness HPI narrative: Is a 37-year-old male with no known allergies presenting with multiple bee stings. Patient states a couple hours prior to arrival, he was mowing the grass when he stumbled upon a below ground nest, got stung 3-4 times including left lower extremity and left upper extremity. Denies rash, nausea or vomiting, diarrhea, any GI upset, diaphoresis, chest pain, shortness of breath, wheezing, stridor, swelling of the mouth, lips, throat, or any other concerns. Did not take any medications prior to arrival. Related Data Previous Rx's Medication Instructions Recorded ibuprofen 600 mg tablet 600 mg PO Q6HP PRN Mild Pain #30 09/19/21 tabs methylprednisolone 4 mg tablets in 4 mg PO DIRECTED 6 days #21 09/19/21 a dose pack packets Allergies Allergy/AdvReac Type Severity Reaction Status Date / Time No Known Allergies Allergy Verified 04/03/20 11:27 [facility] Disclaimer: The information contained in this section may have been updated after the patient was seen, as this information can be updated by other users. Social History Smoking Status: Unknown if ever smoked second hand exposure: No alcohol intake: current substance use type: denies use current occupational status: unemployed Travel in the last 8 weeks: None housing: house current occupational exposures/hazards: No caffeine: Yes ROS Obtained: Yes All systems reviewed & no additional complaints except as documented Physical Exam General General appearance: alert, in no apparent distress and other ( ) Head Head exam: atraumatic and normocephalic Eye Eye exam: Present normal appearance, PERRL and EOMI; Absent periorbital swelling ENT ENT exam: Present mucous membranes moist and other (No evidence of tonsillitis, exudate, pharyngeal erythema, uvular deviation, palatal swelling, dental abscess, angioedema, or other abnormal neto pharyngeal findings) Neck Neck exam: Present normal inspection, full ROM and trachea midline Respiratory Respiratory exam: Present normal lung sounds bilaterally; Absent respiratory distress, wheezes, stridor, accessory muscle use or prolonged expiratory phase Cardiovascular Cardiovascular exam: Present regular rate and normal rhythm Abdominal Exam Abdominal exam: Present soft; Absent distention, tenderness, guarding, rebound, rigidity or normal bowel sounds Extremities Exam Extremities exam: Present o
[2023-03-09 23:18] VITALS: BP 123/74; PULSE 86; RESP 18; TEMP 36.6; O2SAT 97
== END 2023-03-09 23:24 | disposition home or self-care (01) ==
PROVIDERS: Emergency Provider Emergency Medicine
DX: S40.862A Insect bite (nonvenomous) of left upper arm, initial encounter (principal); S80.862A Insect bite (nonvenomous), left lower leg, initial encounter; W57.XXXA Bitten or stung by nonvenomous insect and other nonvenomous arthropods, initial encounter
CPT/HCPCS: 99282

== ENCOUNTER 2024-06-17 19:27 | Emergency (ER) | payer OTHER, SELFPAY ==
[2024-06-17 19:29] VITALS: BP 167/11; PULSE 96; RESP 18; TEMP 36.8; O2SAT 99; BMI 21.2
--- NOTE | 2024-06-17 19:46 | CT_ITS ---
PROCEDURE INFORMATION: Exam: CTA Head With Contrast, Arteriography Exam date and time: 06/17/2024 8:37 PM Age: 38 years old Clinical indication: Other: Possible stroke TECHNIQUE: Imaging protocol: Computed tomographic angiography of the head with contrast. Exam focused on the arteries. 3D rendering (Not supervised by radiologist): MIP and/or 3D reconstructed images were created by the technologist. Radiation optimization: All CT scans at this facility use at least one of these dose optimization techniques: automated exposure control; mA and/or kV adjustment per patient size (includes targeted exams where dose is matched to clinical indication); or iterative reconstruction. Contrast material: ISO 370; Contrast volume: 80 ml; Contrast route: INTRAVENOUS (IV); COMPARISON: CT HEAD/BRAIN WO CON 06/17/2024 8:37 PM FINDINGS: ANTERIOR CIRCULATION: Right internal carotid artery: Intracranial segment is patent with no significant stenosis. No aneurysm. Right middle cerebral artery: No occlusion or significant stenosis. No aneurysm. Right anterior cerebral artery: No occlusion or significant stenosis. No aneurysm. Left internal carotid artery: Intracranial segment is patent with no significant stenosis. No aneurysm. Left middle cerebral artery: No occlusion or significant stenosis. No aneurysm. Left anterior cerebral artery: No occlusion or significant stenosis. No aneurysm. POSTERIOR CIRCULATION: Right vertebral artery: Non dominant right vertebral artery which is visualized in the neck as an extremely tiny thread-like vessel patent throughout the neck and up to the skull base. It is difficult to image discretely intracranially but it appears to likely supply the right posteroinferior cerebellar artery faintly. I suspect this is anatomic. This vessel is not visualized on the axial noncontrast CT images which would correlate with this being an anatomic finding. Left vertebral artery: Dominant patent left vertebral artery. No occlusion or significant stenosis. No aneurysm. Basilar artery: No occlusion or significant stenosis. No aneurysm. Right posterior cerebral artery: No occlusion or significant stenosis. No aneurysm. Left posterior cerebral artery: No occlusion or significant stenosis. No aneurysm. Brain: No evidence for acute intracranial hemorrhage, mass effect, or definite acute infarct by CT Cerebral ventricles: No ventriculomegaly. Bones/joints: Unremarkable. No acute fracture. Soft tissues: Unremarkable. IMPRESSION: 1. No large vessel stenosis or occlusion. 2. Non dominant right vertebral artery which is visualized in the neck as an extremely tiny thread-like vessel which is patent throughout the neck and up to the skull base. It is difficult to discretely image intracranially but I suspect it supplies the right posteroinferior cerebellar artery faintly. This vessel is not visualized on the noncontrast head CT and thus I suspect these findings are all anatomic. Dominant patent left vertebral artery which is the main supply to the basilar artery.
--- NOTE | 2024-06-17 19:46 | CT_ITS ---
PROCEDURE INFORMATION: Exam: CT Head Without Contrast Exam date and time: 06/17/2024 8:37 PM Age: 38 years old Clinical indication: Altered mental status/memory loss and dizziness; Additional info: Possible stroke TECHNIQUE: Imaging protocol: Computed tomography of the head without contrast. Radiation optimization: All CT scans at this facility use at least one of these dose optimization techniques: automated exposure control; mA and/or kV adjustment per patient size (includes targeted exams where dose is matched to clinical indication); or iterative reconstruction. COMPARISON: CT ANGIO HEAD 06/17/2024 8:37 PM FINDINGS: Brain: No hemorrhage. Unremarkable white matter. No mass effect. Cerebral ventricles: No ventriculomegaly. Paranasal sinuses: Visualized sinuses are unremarkable. No fluid levels. Mastoid air cells: Visualized mastoid air cells are well aerated. Bones: Unremarkable. No acute fracture. Soft tissues: Unremarkable. IMPRESSION: No acute intracranial abnormality.
--- NOTE | 2024-06-17 19:46 | CT_ITS ---
PROCEDURE INFORMATION: Exam: CTA Neck With Contrast Exam date and time: 06/17/2024 8:37 PM Age: 38 years old Clinical indication: Other: Possible stroke TECHNIQUE: Imaging protocol: Computed tomographic angiography of the neck with contrast. Exam focused on the cervical segments of the vasculature. 3D rendering (Not supervised by radiologist): MIP and/or 3D reconstructed images were created by the technologist. Radiation optimization: All CT scans at this facility use at least one of these dose optimization techniques: automated exposure control; mA and/or kV adjustment per patient size (includes targeted exams where dose is matched to clinical indication); or iterative reconstruction. Contrast material: ISO 370; Contrast volume: 80 ml; Contrast route: INTRAVENOUS (IV); COMPARISON: CT ANGIO HEAD 06/17/2024 8:37 PM FINDINGS: Right common carotid artery: No stenosis. No dissection or occlusion. Right internal carotid artery: No stenosis of the extracranial segment. No dissection or occlusion. Right external carotid artery: No occlusion or stenosis of the origin. Left common carotid artery: No stenosis. No dissection or occlusion. Left internal carotid artery: No stenosis of the extracranial segment. No dissection or occlusion. Left external carotid artery: No occlusion or stenosis of the origin. Right vertebral artery: Non dominant tiny caliber right vertebral artery is patent in the neck and up to the skull base as noted on the CTA head report. No definite stenosis or dissection. Left vertebral artery: Dominant patent left vertebral artery anatomically. No stenosis. No dissection or occlusion. Soft tissues: Normal. No significant soft tissue swelling. Bones/joints: No acute fracture. IMPRESSION: 1. No stenosis or occlusion. 2. Anatomically non dominant tiny caliber right vertebral artery is patent up to the skull base as noted on the CTA head report. 3. Dominant patent left vertebral artery without significant stenosis or dissection. REFERENCES: NASCET CRITERIA. The degree of stenosis in the cervical segment of the internal carotid artery is based on NASCET criteria. Normal is no stenosis. Mild is less than 50% stenosis. Moderate is 50-69% stenosis. Severe is 70% to 99% stenosis. Total occlusion is no detectable patent lumen.
--- NOTE | 2024-06-17 19:54 | ECG_ITS ---
APPROVED REPORT Exam: Resting ECG HR:88 bpm ECG Measurements Heart Rate 88 AXES KS 127 P 61 QRSd 94 QRS 68 QT 328 T 54 QTc 374 Conclusion SINUS RHYTHM NORMAL ECG UNCONFIRMED REPORT Electronically signed by : GIGI RUSSELL, 06/17/2024 23:10:56
--- NOTE | 2024-06-17 20:09 | ED_ITS ---
Discharge Plan Disposition Patient Disposition: Home, Self-Care Condition: Good Prescriptions Prescriptions: New chlordiazepoxide HCl 25 mg capsule See Rx Instructions .ROUTE .COMPLEX Qty: 15 0RF Rx Instructions: Day 1 50mg q6h, Day 2 25mg q6h, Day 3 25mg q12h, Day 4 25mg at night, (Rx fifteen 25mg tabs) Referrals Follow up/Referrals: Provider,Referral, MD [Primary Care Provider] - See instructions Activity Restrictions/Add. Instructions Additional Instructions/Restrictions: You were evaluated in the emergency department today. Please meat pickler your prescription for Librium taper and take to detox from alcohol. Do not drink while taking this medication. Follow-up closely with a primary care provider over the next week. We have provided you with information for PCPs that are accepting patients. Return to the emergency department right away for new or worsening symptoms such as hallucinations, paranoia, seizures. Clinical Impressions Clinical Impression: Headache Alcohol intoxication Qualifiers: Complication of substance-induced condition: uncomplicated Qualified Code(s): F 10.920 - Alcohol use, unspecified with intoxication, uncomplicated Stand Alone Forms Stand Alone Forms: Work/School Release Instructions Patient Instructions: DI for Drug or Alcohol Withdrawal Print Language Print Language: Japanese Discharge ED Provider: Anabella Morgan General Adult HPI <Linda Hall (ED), HVAC SALES REPRESENTATIVE - Last Filed: 06/17/24 21:06> General Chief complaint: Dizziness Stated complaint: Dizziness,lightheaded Time Seen by Provider: 06/17/24 19:33 Mode of Arrival: Ambulatory Source of Information: Patient Limitations: Physical Limitations Description of Symptoms (Recalled from ER Triage Doc. by RN): Pt presents to ED for dizziness and just not feeling right Pt states he is an alcoholic and hasn't drank for over 24 hours. Pt is not trying to quit drinking, he just hasn't felt like drinking today. Pt states dizziness started today and that he feels drunk even though he hasn't drank. Pt is A&O*4 and has family at bedside. Provider is bedside. History of Present Illness HPI narrative: This is a 38-year-old male who presents to the ED today for complaint of dizziness, headache and pain that went down his arm earlier in the day. He also had some face burning earlier in the day. He says that he had 2-3 times of vomiting earlier today as well. He drinks 10-12 beers per day but has not had any alcohol for 24 hours just because he is not felt like drinking. He feels dizzy and weak right now. He denies chest pain or shortness of breath. No visual changes. No chest pain or shortness of breath. He tells me that he feels drunk even though he has not had anything to drink. He denies any drugs. Patient does have elevated blood pressure and has no history of that currently. Related Data Previous Rx's ?Medication ?Instructions ?Recorded chlordiazepoxide HCl 25 mg capsule See Rx Instructions .Route 06/17/24 .COMPLEX alcohol withdrawal #15 caps Allergies Allergy/AdvReac Type Severity Reaction Status Date / Time No Known Allergies Allergy Verified 04/03/20 11:27 [facility] <Linda Hall (ED), HVAC SALES REPRESENTATIVE - Last Filed: 06/17/24 21:06> [facility] Disclaimer: The information contained in this section may have been updated after the patient was seen, as this information can be updated by other users. Social History (Updated 06/17/24 @ 21:06 by Linda Hall (ED), HVAC SALES REPRESENTATIVE) Smoking Status: Current every day smoker tobacco type: cigarettes packs per day: 1 second hand exposure: No alcohol intake: current alcohol intake frequency: 3 or more drinks per day substance use type: denies use current occupational status: unemployed Travel in the last 8 weeks: None housing: house current occupational exposures/hazards: No caffeine: Yes Other Medical History Have you received the Flu Vaccine for this season: No Have you received the Pneumonia Vaccine: No <Linda Hall (ED), HVAC SALES REPRESENTATIVE - Last Filed: 06/17/24 21:06> ROS Obtained: Yes Systems reviewed as appropriate & no additional complaints except as documented Constitutional Constitutional: Reports as per HPI Physical Exam <Linda Hall (ED), HVAC SALES REPRESENTATIVE - Last Filed: 06/17/24 21:06> General General appearance: alert, appears intoxicated and in distress Head Head exam: atraumatic and normocephalic Eye Eye exam: Present normal appearance, PERRL and EOMI ENT ENT exam: Present normal oropharynx and mucous membranes moist Neck Neck exam: Present full ROM and trachea midline Respiratory Respiratory exam: Present normal lung sounds bilaterally Cardiovascular Cardiovascular exam: Present regular rate, normal rhythm, normal heart sounds, +S1 and +S2 Abdominal Exam Abdominal exam: Present soft and normal bowel sounds Extremities Exam Extremities exam: Present normal inspection, full ROM and normal capillary refill Neurological Exam Neurological exam: Present alert and oriented X3 Psychiatric Psychiatric exam: Present anxious Skin Skin exam: Present warm, dry and intact Medical Decision Making <Linda Hall (ED), HVAC SALES REPRESENTATIVE - Last Filed: 06/17/24 21:06> Medical Records Screening: Per USPSTF and CDC recommendations, given the prevalence of disease in our region, it is our hospital?s policy to screen for HIV and viral Hepatitis for all patients aged 18 and over and those with ongoing risk factors. Mitchell Inquiry Pt receiving controlled substance: No Mitchell was queried for this patient: No Vital Signs: 06/17/24 19:29 06/17/24 21:00 06/17/24 21:30 Temperature 98.3 F Temperature Source Oral Pulse Rate 86 92 H Pulse Rate [Left] 96 H Respiratory Rate 18 Blood Pressure 145/104 H 160/109 H Blood Pressure [Right Arm] 167/11 H Blood Pressure Mean 118 119 Blood Pressure Mean [Right Arm] 63 02 Sat by Pulse Oximetry 99 97 97 Oxygen Delivery Method Room Air 06/17/24 22:00 06/17/24 22:56 Temperature 98.7 F Temperature Source Oral Pulse Rate 90 75 Pulse Rate [Left] Respiratory Rate 18 Blood Pressure 144/96 H 147/94 H Blood Pressure [Right Arm] Blood Pressure Mean 110 Blood Pressure Mean [Right Arm] 02 Sat by Pulse Oximetry 98 Oxygen Delivery Method Room Air Lab Data Lab Results 06/17/24 20:04: WBC 3.9 L, RBC 4.78, Hgb 15.3, Hct 43.8, MCV 91.7, MCH 32.0 H, MCHC 34.9, RDW 13.9, Plt Count 150, MPV 8.1, Neut % (Auto) 47.2, Lymph % (Auto) 43.2, Tyrrell % (Auto) 5.4, Eos % (Auto) 3.1, Baso % (Auto) 1.2, Neut # (Auto) 1.8, Lymph # (Auto) 1.7, Tyrrell # (Auto) 0.2, Eos # (Auto) 0.1, Baso # (Auto) 0.1, PT 10.8, INR 0.96, APTT 26.5, Sodium 144, Potassium 4.1, Chloride 103, Carbon Dioxide 28, Anion Gap 17.1 H, BUN 15, Creatinine 1.20, Estimated Creat Clear 73, Estimated GFR 67, Est GFR ( Amer) 81, Glucose 126 H, Calcium 8.9, Magnesium 1.9, Total Bilirubin 0.5, AST 80 H, ALT 31, Alkaline Phosphatase 54, Troponin I < 0.01, Total Protein 7.9, Albumin 4.8, Globulin 3.1, Albumin/Globulin Ratio 1.5, Triglycerides 309 H, Cholesterol 256 H, LDL Cholesterol Direct 110.92, VLDL Cholesterol 62 H, HDL Cholesterol 105 H, Cholesterol/HDL Ratio 2.4, Lipase 101, Plasma/Serum Alcohol 277 H, HIV 1&2 Antibody Rapid Nonreactive 06/17/24 21:21: SARS-CoV-2 (PCR) Not detected, Influenza A Untype (PCR) Not detected, Influenza Type B (PCR) Not detected 06/17/24 22:12: Urine Color Yellow, Urine Appearance Clear, Urine pH 7.5, Ur Specific [place] 1.010, Urine Protein Negative, Urine Glucose (UA) Negative, Urine Ketones Negative, Urine Blood Negative, Urine Nitrate Negative, Urine Bilirubin Negative, Urine Urobilinogen 0.2, Ur Leukocyte Esterase Negative, Urine RBC None, Urine WBC None, Ur Squamous Epith Cells None, Urine Bacteria None, Urine Opiates Screen Negative, Urine Methadone Screen Negative, Ur Barbituates Screen Negative, Ur Phencyclidine Scrn Negative, Ur Amphetamines Screen Negative, U Benzodiazepines Scrn Negative, Urine Cocaine Screen Negative, U Marijuana (THC) Screen Negative 06/17/24 20:04 06/17/24 20:04 Orders (Tests/Meds): ED MEDICATIONS Discontinued Medications Generic Name Dose Route Start Last Admin Trade Name Freq PRN Reason Stop Dose Admin Chlordiazepoxide HCl 50 mg 06/17/24 22:47 06/17/24 23:00 Chlordiazepoxide 25mg Capsule PO 06/17/24 22:48 50 mg ONCE ONE Administration Folic Acid 1 mg 06/17/24 20:05 06/17/24 20:10 Folic Acid 1mg Tablet PO 06/17/24 20:06 1 mg ONCE ONE Administration Multivitamins 10 ml/ Thiamine 1,015 mls @ 150 mls/hr 06/17/24 20:05 06/17/24 20:12 HCl 100 mg/ Magnesium Sulfate IV 06/18/24 02:50 150 mls/hr 2 gm/ Lactated Ringer's .[id number] GERMÁN Administration Iopamidol 80 ml 06/17/24 20:38 06/17/24 20:40 Iopamidol-370 (76%);100ml Bottle IV 06/17/24 20:39 80 ml ONCE ONE Administration Sodium Chloride 50 ml 06/17/24 20:38 06/17/24 20:39 0.9 % Sodium Chloride 50 Ml Vial IV 06/17/24 20:39 50 ml ONCE ONE Administration Sodium Chloride 10 ml 06/17/24 20:38 06/17/24 20:39 Sodium Chloride 0.9% 10ml Syr (Rad Only) IV 06/17/24 20:39 10 ml ONCE ONE Administration ORDERS Category Date Time Status CT angio head Stat Cat Scan 06/17/24 19:[address] angio neck Stat Cat Scan 06/17/24 19:[address] head/brain wo con Stat Cat Scan 06/17/24 19:46 Completed Activated Partial Thrombo Time Stat Lab 06/17/24 20:04 Completed CBC [Complete Blood Count Auto Diff] Stat Lab 06/17/24 20:04 Completed Comprehensive Metabolic Panel Stat Lab 06/17/24 20:04 Completed Drug Screen,Urine Stat Lab 06/17/24 22:12 Completed Ethyl Alcohol Stat Lab 06/17/24 20:04 Completed HIV (1&2) Antibody Rapid Stat Lab 06/17/24 20:04 Completed Hep C Ab with Reflex to RNA Stat Lab 06/17/24 20:04 Received Lipase Stat Lab 06/17/24 20:04 Completed Lipid Panel Stat Lab 06/17/24 20:04 Completed Magnesium Stat Lab 06/17/24 20:04 Completed Prothrombin Time INR Stat Lab 06/17/24 20:04 Completed Rapid PCR Covid and Flu A/B Stat Lab 06/17/24 21:21 Completed Troponin I Q3H Lab 06/17/24 23:00 Ordered Troponin I Stat Lab 06/17/24 20:04 Completed Urinalysis and Microscopic Stat Lab 06/17/24 22:12 Completed HEART Score History (anamnesis): Slightly suspicious ECG: Non-specific disturbance Age: <45 years Risk factors: 1-2 risk factors Troponin: </= normal limit HEART Score: 2 Medical Decision Narrative: Insert review patient is a 38-year-old male presenting to the emergency department for evaluation of dizziness. Patient did have episode of headache and pain going down left arm earlier today along with 2-3 episodes of vomiting. He had an episode of his face burning and his tongue tingling earlier today. Patient is hemodynamically stable and with a slightly elevated blood pressure at 167/111. Differential diagnosis includes alcohol intoxication, withdrawal, NH, stroke among others. Workup will be conducted with hematologic labs, specific imaging, including CT head, angio head and neck. Initial inventions include rally bag. Initial workup reviewed by me alcohol level was 277, other labs so far unremarkable. Dr. Morgan contacted Dr. Son concerning the EKG. It was unconcerning but he said to let them know if anything changes. We will repeat the EKG. <Anabella Morgan, DO - Last Filed: 06/17/24 23:32> Vital Signs: 06/17/24 19:29 06/17/24 21:00 06/17/24 21:30 Temperature 98.3 F Temperature Source Oral Pulse Rate 86 92 H Pulse Rate [Left] 96 H Respiratory Rate 18 Blood Pressure 145/104 H 160/109 H Blood Pressure [Right Arm] 167/11 H Blood Pressure Mean 118 119 Blood Pressure Mean [Right Arm] 63 02 Sat by Pulse Oximetry 99 97 97 Oxygen Delivery Method Room Air 06/17/24 22:00 06/17/24 22:56 Temperature 98.7 F Temperature Source Oral Pulse Rate 90 75 Pulse Rate [Left] Respiratory Rate 18 Blood Pressure 144/96 H 147/94 H Blood Pressure [Right Arm] Blood Pressure Mean 110 Blood Pressure Mean [Right Arm] 02 Sat by Pulse Oximetry 98 Oxygen Delivery Method Room Air Lab Data Lab Results 06/17/24 20:04: WBC 3.9 L, RBC 4.78, Hgb 15.3, Hct 43.8, MCV 91.7, MCH 32.0 H, MCHC 34.9, RDW 13.9, Plt Count 150, MPV 8.1, Neut % (Auto) 47.2, Lymph % (Auto) 43.2, Tyrrell % (Auto) 5.4, Eos % (Auto) 3.1, Baso % (Auto) 1.2, Neut # (Auto) 1.8, Lymph # (Auto) 1.7, Tyrrell # (Auto) 0.2, Eos # (Auto) 0.1, Baso # (Auto) 0.1, PT 10.8, INR 0.96, APTT 26.5, Sodium 144, Potassium 4.1, Chloride 103, Carbon Dioxide 28, Anion Gap 17.1 H, BUN 15, Creatinine 1.20, Estimated Creat Clear 73, Estimated GFR 67, Est GFR ( Amer) 81, Glucose 126 H, Calcium 8.9, Magnesium 1.9, Total Bilirubin 0.5, AST 80 H, ALT 31, Alkaline Phosphatase 54, Troponin I < 0.01, Total Protein 7.9, Albumin 4.8, Globulin 3.1, Albumin/Globulin Ratio 1.5, Triglycerides 309 H, Cholesterol 256 H, LDL Cholesterol Direct 110.92, VLDL Cholesterol 62 H, HDL Cholesterol 105 H, Cholesterol/HDL Ratio 2.4, Lipase 101, Plasma/Serum Alcohol 277 H, HIV 1&2 Antibody Rapid Nonreactive 06/17/24 21:21: SARS-CoV-2 (PCR) Not detected, Influenza A Untype (PCR) Not detected, Influenza Type B (PCR) Not detected 06/17/24 22:12: Urine Color Yellow, Urine Appearance Clear, Urine pH 7.5, Ur Specific [place] 1.010, Urine Protein Negative, Urine Glucose (UA) Negative, Urine Ketones Negative, Urine Blood Negative, Urine Nitrate Negative, Urine Bilirubin Negative, Urine Urobilinogen 0.2, Ur Leukocyte Esterase Negative, Urine RBC None, Urine WBC None, Ur Squamous Epith Cells None, Urine Bacteria None, Urine Opiates Screen Negative, Urine Methadone Screen Negative, Ur Barbituates Screen Negative, Ur Phencyclidine Scrn Negative, Ur Amphetamines Screen Negative, U Benzodiazepines Scrn Negative, Urine Cocaine Screen Negative, U Marijuana (THC) Screen Negative Orders (Tests/Meds): ED MEDICATIONS Discontinued Medications Generic Name Dose Route Start Last Admin Trade Name Santoq PRN Reason Stop Dose Admin Chlordiazepoxide HCl 50 mg 06/17/24 22:47 06/17/24 23:00 Chlordiazepoxide 25mg Capsule PO 06/17/24 22:48 50 mg ONCE ONE Administration Folic Acid 1 mg 06/17/24 20:05 06/17/24 20:10 Folic Acid 1mg Tablet PO 06/17/24 20:06 1 mg ONCE ONE Administration Multivitamins 10 ml/ Thiamine 1,015 mls @ 150 mls/hr 06/17/24 20:05 06/17/24 20:12 HCl 100 mg/ Magnesium Sulfate IV 06/18/24 02:50 150 mls/hr 2 gm/ Lactated Ringer's .[id number] GERMÁN Administration Iopamidol 80 ml 06/17/24 20:38 06/17/24 20:40 Iopamidol-370 (76%);100ml Bottle IV 06/17/24 20:39 80 ml ONCE ONE Administration Sodium Chloride 50 ml 06/17/24 20:38 06/17/24 20:39 0.9 % Sodium Chloride 50 Ml Vial IV 06/17/24 20:39 50 ml ONCE ONE Administration Sodium Chloride 10 ml 06/17/24 20:38 06/17/24 20:39 Sodium Chloride 0.9% 10ml Syr (Rad Only) IV 06/17/24 20:39 10 ml ONCE ONE Administration ORDERS Category Date Time Status CT angio head Stat Cat Scan 06/17/24 19:[address] angio neck Stat Cat Scan 06/17/24 19:[address] head/brain wo con Stat Cat Scan 06/17/24 19:46 Completed Activated Partial Thrombo Time Stat Lab 06/17/24 20:04 Completed CBC [Complete Blood Count Auto Diff] Stat Lab 06/17/24 20:04 Completed Comprehensive Metabolic Panel Stat Lab 06/17/24 20:04 Completed Drug Screen,Urine Stat Lab 06/17/24 22:12 Completed Ethyl Alcohol Stat Lab 06/17/24 20:04 Completed HIV (1&2) Antibody Rapid Stat Lab 06/17/24 20:04 Completed Hep C Ab with Reflex to RNA Stat Lab 06/17/24 20:04 Received Lipase Stat Lab 06/17/24 20:04 Completed Lipid Panel Stat Lab 06/17/24 20:04 Completed Magnesium Stat Lab 06/17/24 20:04 Completed Prothrombin Time INR Stat Lab 06/17/24 20:04 Completed Rapid PCR Covid and Flu A/B Stat Lab 06/17/24 21:21 Completed Troponin I Q3H Lab 06/17/24 23:00 Ordered Troponin I Stat Lab 06/17/24 20:04 Completed Urinalysis and Microscopic Stat Lab 06/17/24 22:12 Completed ECG Data Tracing #1: I reviewed this ECG and interpreted as documented below: Normal sinus rhythm with a ventricular rate of [address] changes but no acute STEMI. Some J-point elevation in V2. Normal intervals. I did discuss the case with Dr. Son who agrees no STEMI despite the subtle ST changes in V2. ECG initial impression date: 06/17/24 ECG initial impression time: 19:58 Tracing #2: I reviewed this ECG and interpreted as documented below: Normal sinus rhythm with a ventricular rate of [address] changes concerning for STEMI, however he does continue to have J-point elevation noted on prior EKG in V2 without significant change. ECG initial impression date: 06/17/24 ECG initial impression time: 21:24 HEART Score HEART Score: 2 Medical Decision Narrative: Insert review patient is a 38-year-old male presenting to the emergency department for evaluation of dizziness. Patient did have episode of headache and pain going down left arm earlier today along with 2-3 episodes of vomiting. He had an episode of his face burning and his tongue tingling earlier today. Patient is hemodynamically stable and with a slightly elevated blood pressure at 167/111. Differential diagnosis includes alcohol intoxication, withdrawal, NH, stroke among others. Workup will be conducted with hematologic labs, specific imaging, including CT head, angio head and neck. Initial inventions include rally bag. Initial workup reviewed by me alcohol level was 277, other labs so far unremarkable. Dr. Morgan contacted Dr. Son concerning the EKG. It was unconcerning but he said to let them know if anything changes. We will repeat the EKG. DO Eddie: I was consulted by the DANIEL, and we discussed the complexity of the problems being addressed. I approved the treatment and management plan for this patient's care in the emergency department, thus performing a substantive portion of the medical decision making. I seems well. The patient is 2100. CT scans reassuring without acute pathology. He does have anatomic variant noted by radiology. Labs demonstrated AST mildly elevated in comparison to ALT, expected in the setting of alcohol use. Labs are otherwise very reassuring. Troponin negative, repeat EKG stable. On my assessment of the patient, he is feeling a lot better and is resting comfortably with reassuring vital signs on cardiac telemetry. Possible that this was a complex type headache/migraine, as the patient has no focal neurologic deficits to suggest any acute intracranial pathology and workup is very reassuring. Patient states that he feels a lot better after the banana bag and wants help detoxing from alcohol. I advised him different options, such as inpatient detox given history of alcohol withdrawals versus outpatient referral, outpatient Librium taper, among others. He would like to try Librium taper to help get him off of alcohol, as he states that he was on Suboxone previously stopping heroin. He was prescribed Librium taper and given first dose here. Ultimately after shared decision-making, he elects to go home. He was given prescription for Librium taper, instructions for close follow-up with her primary care provider, and very strict return precautions. He was discharged after all questions were answered. Anabella Morgan, DO Critical Care <Linda Hall (ED), HVAC SALES REPRESENTATIVE - Last Filed: 06/17/24 21:06> Critical Care Time Critical Care Time: No
[2024-06-17] MEDS: FOLIC ACID 1MG TABLET 1 MG PO (20:10)
[2024-06-17] MEDS: MVI, ADULT NO.1 WITH VIT K 10 ML, THIAMINE HCL 100 MG, MAGNESIUM SULFATE 2 GM in LACTAT... 150 ML IV (20:12)
[2024-06-17 20:18] LABS: Basophils # 0.1 K/mm3 (0-0.2); Basophils % 1.2 % (0.1-2.0); Eosinophils # 0.1 K/mm3 (0.0-0.4); Eosinophils % 3.1 % (0.1-12.0); Hematocrit 43.8 % (42.0-52.0); Hemoglobin 15.3 g/dL (14.1-18.0); Lymphocytes # 1.7 K/mm3 (0.7-4.5); Lymphocytes % 43.2 % (10-50); Mean Corpuscular HGB Conc 34.9 g/dL (31.8-35.4); Mean Corpuscular Volume 91.7 fl (80-94); Mean Platelet Volume 8.1 fl (7.4-10.4); Monocytes # 0.2 K/mm3 (0.1-1.0); Monocytes % 5.4 % (1.7-9.3); Neutrophils # 1.8 K/mm3 (1.8-7.8); Neutrophils % 47.2 % (37.0-80.0); Platelet Count 150 K/mm3 (142-424); Red Blood Count 4.78 M/mm3 (4.60-6.20); Red Cell Distribution Width 13.9 % (11.5-17.5); White Blood Count 3.9 K/mm3 (4.8-10.8)
[2024-06-17 20:25] LABS: Chloride 103 mmol/L (98-107)
[2024-06-17 20:26] LABS: Albumin Level 4.8 g/dl (3.5-5.0); Potassium 4.1 mmoL/L (3.5-5.1); Sodium 144 mmol/L (136-145)
[2024-06-17 20:28] LABS: Cholesterol 256 mg/dl (140-200); Ethyl Alcohol 277 mg/dl (0-10); Triglycerides 309 mg/dl (30-150); VLDL Cholesterol 62 mg/dL (0-40)
[2024-06-17 20:29] LABS: Alanine Aminotransferase 31 U/L (12-78); Albumin/Globulin Ratio 1.5 (1.1-1.8); Alkaline Phosphatase 54 U/L (38-126); Anion Gap 17.1 mEq/L (5-15); Aspartate Amino Transferase 80 U/L (17-59); Bilirubin,Total 0.5 mg/dl (0.2-1.3); Blood Urea Nitrogen 15 mg/dl (9-20); Calcium 8.9 mg/dl (8.4-10.2); Carbon Dioxide 28 mmol/L (22.0-30.0); Chol/HDL Ratio 2.4 (1-3.5); Creatinine Clearance Estimated 73 mL/min (50-200); Estimated Glomerular Filt Rate 67 ml/min (>60); GFR (African American) 81 ML/MIN (>60); Globulin 3.1 g/dL (1.3-3.2); Glucose 126 mg/dl (74-100); HDL Cholesterol 105 mg/dl (40-60); Lipase 101 U/L (23-300); Magnesium 1.9 mg/dl (1.6-2.3); Total Protein,Serum 7.9 g/dl (6.3-8.2)
[2024-06-17 20:31] LABS: Activated Partial Thrombo Time 26.5 seconds (22.8-30.6); INR 0.96 (0.9-1.1); Prothrombin Time 10.8 seconds (10.1-12.5)
[2024-06-17 20:39] LABS: Direct LDL Cholesterol 110.92 mg/dL (100-129)
[2024-06-17] MEDS: 0.9 % SODIUM CHLORIDE 50 ML VIAL IV (20:39)
[2024-06-17] MEDS: SODIUM CHLORIDE 0.9% 10ML SYR (RAD ONLY) 10 ML IV (20:39)
[2024-06-17] MEDS: IOPAMIDOL-370 (76%);100ML BOTTLE 80 ML IV (20:40)
[2024-06-17 20:44] LABS: Troponin I < 0.01 ng/ml (0.00-0.034)
[2024-06-17 21:00] VITALS: BP 145/104; PULSE 86; O2SAT 97
--- NOTE | 2024-06-17 21:19 | ECG_ITS ---
APPROVED REPORT Exam: Resting ECG HR:87 bpm ECG Measurements Heart Rate 87 AXES OR 116 P 42 QRSd 93 QRS 62 QT 335 T 53 QTc 380 Conclusion SINUS RHYTHM WITH SHORT OR INTERVAL BORDERLINE ECG UNCONFIRMED REPORT Electronically signed by : GIGI RUSSELL, 06/17/2024 23:10:18
[2024-06-17 21:26] LABS: Coronavirus 19, PCR Not Detected (NotDetected); Influenza A, PCR Not Detected (NotDetected); Influenza B, PCR Not Detected (NotDetected)
[2024-06-17 21:30] VITALS: BP 160/109; PULSE 92; O2SAT 97
[2024-06-17 21:55] LABS: HIV (1&2) Antibody Rapid NONREACTIVE (NONREACTIVE)
[2024-06-17 22:00] VITALS: BP 144/96; PULSE 90; O2SAT 98
[2024-06-17 22:16] LABS: Microscopic, Urine URINE MICROSCOPIC (MICROSCOPIC)
[2024-06-17 22:20] LABS: Appearance,Urine CLEAR (Clear); Bilirubin,Urine Negative (Negative); Blood, Urine Negative (Negative); Color,Urine YELLOW (Yellow); Glucose,Urine (UA) Negative (Negative); Ketones,Urine Negative (Negative); Leukocyte Esterase,Urine Negative (Negative); Nitrate,Urine Negative (Negative); PH,Urine 7.5 (5.0-8.5); Protein,Urine Negative (Negative); Urobilinogen,Urine 0.2 EU/dl (0.2)
[2024-06-17 22:35] LABS: Amphetamine/Metha Screen,Urine Negative ng/ml (<1000)
[2024-06-17 22:36] LABS: Barbiturates Screen,Urine Negative ng/ml (<200); Benzodiazepines Screen,Urine Negative ng/ml (<200)
[2024-06-17 22:37] LABS: Cannabinoid Screen,Urine Negative ng/ml (<50)
[2024-06-17 22:38] LABS: Cocaine Screen,Urine Negative ng/ml (<300); Methadone Screen,Urine Negative ng/ml (<300)
[2024-06-17 22:39] LABS: Opiate Screen,Urine Negative ng/ml (<300); Phencyclidine Screen,Urine Negative ng/ml (<25)
[2024-06-17 22:56] VITALS: BP 147/94; PULSE 75; RESP 18; TEMP 37.1; O2SAT 97
[2024-06-20 06:52] LABS: HCV Ab Non Reactive (Non Reactive)
== END 2024-06-17 23:10 | disposition home or self-care (01) ==
PROVIDERS: Nurse Practitioner; Emergency Provider Emergency Medicine
DX: F10.929 Alcohol use, unspecified with intoxication, unspecified (principal); R42 Dizziness and giddiness; R51.9 Headache, unspecified; R11.10 Vomiting, unspecified; R03.0 Elevated blood-pressure reading, without diagnosis of hypertension; R53.1 Weakness
CPT/HCPCS: 70450; 70496; 70498; 80053; 80061; 80307; 80320; 81001; 83690; 83735; 84484; 85025; 85610; 85730; 86803; 87389; 87636; 93005; 96361; 96374; 99285; G0480; J3411; J7120; Q9967

== ENCOUNTER 2024-09-05 17:24 | Emergency (ER) | payer OTHER, SELFPAY ==
[2024-09-05 17:25] VITALS: BP 147/105; PULSE 96; RESP 18; TEMP 36.6; O2SAT 99; BMI 22.0
--- NOTE | 2024-09-05 17:50 | PC.NURSE ---
JULIO CÉSAR TALKING WITH PT
[2024-09-05] MEDS: predniSONE 20MG TAB 40 MG PO (18:09)
[2024-09-05] MEDS: LORATADINE 10MG TABLET 10 MG PO (18:09)
--- NOTE | 2024-09-05 18:20 | PC.NURSE ---
ESTEFANIA PARK AT TRYING TO GET WAX OUT OF PT EAR AT THIS TIME
--- NOTE | 2024-09-05 18:35 | ED_ITS ---
Discharge Plan Disposition Patient Disposition: Home, Self-Care Prescriptions Prescriptions: New cetirizine 10 mg tablet 10 mg PO DAILY PRN (Reason: allergy symptoms) Qty: 30 1RF prednisone 20 mg tablet 40 mg PO DAILY 5 Days Qty: 10 0RF No Action bupropion HCl [Wellbutrin SR] 150 mg tablet sustained-release 12 hr 150 mg PO BID Qty: 60 2RF Referrals Follow up/Referrals: Rosendo Gambino DO [Primary Care Provider] - See instructions Activity Restrictions/Add. Instructions Additional Instructions/Restrictions: Call your family doctor to establish care for this visit to the emergency department and schedule follow-up within 48 hours to ensure improvement. If you have any worsening of your condition or any other concerning signs or symptoms, return to the emergency department or your primary care doctor for further evaluation. Prednisone each morning, antihistamine each night. Clinical Impressions Clinical Impression: Bilateral tinnitus, Bilateral impacted cerumen Print Language Print Language: Serbian Discharge ED Provider: Norberto Bowling General Adult HPI General Chief complaint: Ear Stated complaint: Ringing in head Time Seen by Provider: 09/05/24 17:35 Mode of Arrival: Ambulatory Source of Information: Patient Limitations: No Limitations Description of Symptoms (Recalled from ER Triage Doc. by RN): pt complains of ringing in ears. drinks 24-30 beers a day. History of Present Illness HPI narrative: Please note that above description of symptoms, in this electronic medical record under categorization of recalled from ER triage doctor by RN are r eflective of an initial nursing assessment, however, is not reflective of my full history and physical exam that was personally taken and clarified. Consequentially, this preceding description of symptoms, which may include the patient's categorized chief complaint in the EMR, do not reflect my personal clinical impression, and the ultimate description of history of present illness and patient stated complaints should be deferred to this section of the note. Unless stated otherwise or congruent with this section of the note, additional signs, symptoms, or incongruence should be interpreted as inaccurate with my clinical impression. Related Data Previous Rx's ?Medication ?Instructions ?Recorded bupropion HCl 150 mg tablet,12 hr 150 mg PO BID #60 ea 08/16/24 sustained-release (Wellbutrin SR) cetirizine 10 mg tablet 10 mg PO DAILY PRN allergy 09/05/24 symptoms #30 tabs prednisone 20 mg tablet 40 mg (2 x 20 mg) PO DAILY 5 days 09/05/24 #10 tabs Allergies Allergy/AdvReac Type Severity Reaction Status Date / Time No Known Allergies Allergy Verified 08/16/24 14:52 [facility] Disclaimer: The information contained in this section may have been updated after the patient was seen, as this information can be updated by other users. Social History Smoking Status: Current every day smoker tobacco type: cigarettes packs per day: 1 second hand exposure: No alcohol intake: current alcohol intake frequency: 3 or more drinks per day substance use type: denies use current occupational status: unemployed Travel in the last 8 weeks: None housing: house current occupational exposures/hazards: No caffeine: Yes Have you lived/traveled outside [place] in past 30 days?: No Contact w/someone who lives/traveled outside [place] past 30 days?: No Exposure to someone with infectious disease in past 14 days?: No Do you have a fever (greater than 100.4 F or 38 C)?: No Have you tested positive for COVID-19: No Exposed to someone with COVID-19 in past 14 days?: No Do you have a sore throat?: No Do you have a cough?: No Do you have any weakness?: No Do you have any diarrhea?: No Are you experiencing any unusual bleeding?: No Do you have any muscle aches/pain?: No Do you have any abdominal pain?: No Are you experiencing loss of taste or smell?: No Other Medical History Have you received the Flu Vaccine for this season: No Have you received the Pneumonia Vaccine: No ROS Obtained: Yes All systems reviewed & no additional complaints except as documented Physical Exam General General appearance: alert Head Head exam: atraumatic and normocephalic Eye Eye exam: Present normal appearance, PERRL and EOMI ENT ENT exam: Absent TM's normal bilaterally or normal external ear exam Neck Neck exam: Present normal inspection, full ROM and trachea midline Respiratory Respiratory exam: Absent respiratory distress, wheezes, stridor, accessory muscle use or prolonged expiratory phase Cardiovascular Cardiovascular exam: Present other (Pulses equal symmetric in upper and lower extremities) Abdominal Exam Abdominal exam: Present soft; Absent distention, tenderness or pulsatile mass Extremities Exam Extremities exam: Absent edema Neurological Exam Neurological exam: Present alert, oriented X3 and CN II-XII intact; Absent motor sensory deficit Skin Skin exam: Present warm and dry; Absent diaphoresis or erythema Medical Decision Making Medical Records Medical records reviewed: Yes I reviewed the patient's medical records. Screening: Per USPSTF and CDC recommendations, given the prevalence of disease in our region, it is our hospital?s policy to screen for HIV and viral Hepatitis for all patients aged 18 and over and those with ongoing risk factors. Mitchell Inquiry Pt receiving controlled substance: No Mitchell was queried for this patient: No Vital Signs: 09/05/24 17:25 Temperature 98 F Temperature Source Oral Pulse Rate [Right] 96 H Respiratory Rate 18 Blood Pressure [Right Arm] 147/105 H Blood Pressure Mean [Right Arm] 119 02 Sat by Pulse Oximetry 99 Oxygen Delivery Method Room Air Orders (Tests/Meds): ED MEDICATIONS Discontinued Medications Generic Name Dose Route Start Last Admin Trade Name Freq PRN Reason Stop Dose Admin Loratadine 10 mg 09/05/24 17:56 09/05/24 18:09 Loratadine 10mg Tablet PO 09/05/24 17:57 10 mg ONCE ONE Administration Prednisone 40 mg 09/05/24 17:54 09/05/24 18:09 Prednisone 20mg Tab PO 09/05/24 17:55 40 mg ONCE ONE Administration ORDERS Category Date Time Status Consult Electromechanical Technologist [CONS] Routine Cons 09/05/24 17:54 Active Medical Decision Narrative: 39-year-old male chronic alcoholism and chronic tinnitus secondary to industrial work presenting with worsening tinnitus. States that has been getting worse throughout the day today. He has been drinking his normal amount. Has not been using aspirin, denies overdosing or taking any medications. Came in for further evaluation. History obtained with patient. On arrival, patient hemodynamically stable, alert, oriented, very well-appearing, but smells of alcohol. Bilateral ears have wax impactions, unable to visualize TMs. Differential includes viral syndrome, pressure equalization issue, cerumen impaction, sinus infection, among others. Patient given prednisone and loratadine. Bilateral TMs were irrigated and large wax impactions were cleared. On repeat evaluation, bilateral TMs clean, clear, EACs normal as well. Patient states that his tinnitus is pretty near resolved after rinsing. Because patient at baseline without signs or symptoms of clinical decompensation, deemed appropriate for discharge. I discussed my clinical impression with patient and answered all questions. At this time, the evidence for any other entities in the differential is insufficient to warrant any further testing or ED observation. This was explained as well. Advisory was given that persistent or worsening symptoms require further evaluation. I confirmed the understanding of this discussion. Business Analyst Consultant disclaimer Much of this encounter note is an electronic network development coordinator spoken language to printed text. Electronic network development coordinator of the spoken language may permit errors. Although I have reviewed the note, some errors may still exist. Critical Care Critical Care Time Critical Care Time: No
[2024-09-05 18:37] VITALS: BP 158/112; PULSE 88; O2SAT 99
[2024-09-05 18:42] VITALS: BP 158/99; PULSE 88; RESP 16; TEMP 36.7; O2SAT 99
== END 2024-09-05 18:43 | disposition home or self-care (01) ==
PROVIDERS: Emergency Provider Emergency Medicine; PCP Internal Medicine
DX: H93.13 Tinnitus, bilateral (principal); H61.23 Impacted cerumen, bilateral; F17.210 Nicotine dependence, cigarettes, uncomplicated
CPT/HCPCS: 99283